=== PATIENT | female | born 1960 | race Asian ===

== ENCOUNTER → 2017-04-13 | Outpatient (CLI) | payer OTHER ==
[2017-04-13 12:39] LABS: HEMATOCRIT 38.1 % (34.6-47.8); HEMOGLOBIN 12.4 g/dL (11.7-16.4); WHITE BLOOD COUNT 7.8 x10^3/uL (3.4-10)
[2017-04-13 12:51] LABS: C-REACTIVE PROTEIN, QUANT 0.06 mg/dL (0.02-0.49)
[2017-04-14 04:06] LABS: TOXOPLASMA GONDII IGG >400.0 IU/mL (0.0-7.1); TOXOPLASMA GONDII IGM 3.6 AU/mL (0.0-7.9)
[2017-04-14 11:52] LABS: RHEUMATOID FACTOR SCREEN NEGATIVE (NEGATIVE)
[2017-04-14 12:05] LABS: ANA SCREEN NEGATIVE (Negative)
== END | disposition home or self-care (01) ==
LOC: CFH 11:16
PROVIDERS: ATTEND Ophthalmology Retina Specialist
DX: D48.7 Neoplasm of uncertain behavior of other specified sites (principal)
CPT/HCPCS: 36415; 80076; 82164; 85025; 85549; 85651; 86038; 86140; 86430; 86480; 86777; 86780

== ENCOUNTER → 2017-04-18 | Outpatient (CLI) | payer OTHER | END | disposition home or self-care (01) | LOC: CFH 10:09 | PROVIDERS: ATTEND Ophthalmology Retina Specialist | DX: R76.11 Nonspecific reaction to tuberculin skin test without active tuberculosis (principal) | CPT/HCPCS: 71020 ==